=== PATIENT | male | born 1970 | race Caucasian/White ===

== ENCOUNTER 2023-09-05 14:48 | Emergency (ER) | payer MEDICARE ==
[~2023-09-05] VITALS: Ht 170.2 cm; Wt 68.2 kg
[2023-09-05 14:52] VITALS: BP 137/74; PULSE 76; RESP 16; TEMP 98.8; O2SAT 98
== END 2023-09-05 17:52 | disposition home or self-care (01) ==
LOC: ER 14:49
DX: T83.010A Breakdown (mechanical) of cystostomy catheter, initial encounter (principal); F41.9 Anxiety disorder, unspecified
CPT/HCPCS: 51702; 99284

== ENCOUNTER 2025-06-08 08:10 | Emergency (ER) | payer MEDICARE, MEDICAID ==
[~2025-06-08] VITALS: Ht 167.6 cm; Wt 72.7 kg
[2025-06-08 08:12] VITALS: RESP 18
--- NOTE | 2025-06-08 10:22 | Physician Documentation ---
History of Present Illness ~ Chief Complaint: Catheter Problem Stated Complaint: "CATHETER PROBLEMS" Time Seen by MD: 08:18 Primary Medical Doctor: [facility] Mode of Arrival: Wheelchair HPI Suprapubic catheter blocked. Has indwelling suprapubic catheter, scheduled for changeout Monday. Is DD and wheelchair bound. Medication Reconciliation Allergies: Coded Allergies: No Known Allergies (Unverified , 06/08/25) Past Medical History Past Medical History: Anxiety Other Past Surgical History: Suprapubic urostomy Review of Systems All Other Systems at this time: Reviewed and Negative Physical Exam Vital Signs: RN Vital Signs have been reviewed: Yes, Temperature: 97.5, Source: Temporal, Heart Rate: 110, Respiratory Rate: 18, BP: 138/94, Pulse Oximetry: 97, Weight: 72.730 Oxygen Flow Rate: 0 Physical Exam Gen: no distress HEENT: poor dentition. PERRL, EOMI Pulm: no distress CV: deferred Abd: soft, nontender, nondistended MSK: baseline contractures Skin: w/d/i Neuro: baseline Progress Results/Orders Results/Orders Completed Orders - DANNY NEAL MD Alprazolam Tablet (Xanax Tablet) (06/08/25 08:40) Medications Received in ER Medications (Trade) Dose Ordered Sig/Cahya Route PRN Reason Start Time Stop Time Status Last Admin Dose Admin (Xanax tablet) 1 mg ONCE ONCE PO 06/08/25 08:40 06/08/25 08:41 DC 06/08/25 08:50 1 MG Vital Signs 06/08/25 06/08/25 06/08/25 08:12 08:33 08:58 Temp 97.5 97.5 Pulse 98 110 Resp 18 B/P (MAP) 147/87 138/94 (109) Pulse Ox 96 97 O2 Flow Rate 0 0 Medical Decision Making Additional information obtaine: N/A Findings 55 year old male with suprapubic catheter obstruction. Replaced at bedside without complication, resulting in good UOP. Counseled, reassured caregiver, discharged. Differential Dx:Considerations: Include: Cellulitis, Tube dislodgement, Tube malfunction Departure Disposition: HOME / SELF CARE / HOMELESS Impression: Primary Impression: Suprapubic catheter dysfunction Condition: Stable Discharge Instructions: Indwelling Urinary Catheter Care, Adult Referrals: NO PRIMARY CARE PROVIDER (PCP) Education Educated: Patient, Other Educated regarding: diagnosis, treatment, prognosis, need for follow up Signature Scribe Signature: . Attestation: . DANNY NEAL MD Jun 08, 2025 10:22
[2025-06-08 10:37] VITALS: BP 156/97; PULSE 93; TEMP 97.5; O2SAT 97
== END 2025-06-08 10:38 | disposition home or self-care (01) ==
LOC: ER 08:11
DX: T83.010A Breakdown (mechanical) of cystostomy catheter, initial encounter (principal); F41.9 Anxiety disorder, unspecified; Y73.2 Prosthetic and other implants, materials and accessory gastroenterology and urology devices associated with adverse incidents
CPT/HCPCS: 51705; 51798; 99284; J7030; J7120